=== PATIENT | female | born 1985 ===

== ENCOUNTER 2024-02-11 08:26 | Inpatient (IN) ==
[2024-02-11 09:35] LABS: ABS Lymphocytes 1.3 10^3/uL (1.0-4.8); ABS Monocytes 0.6 10^3/uL (0.0-0.9); ABS Neutrophils 6.4 10^3/uL (1.5-7.6); Hematocrit 38.5 % (35-45); Mean Corpuscular Hemoglobin 30.6 pg (27-33); Mean Corpuscular Hgb Conc 33.8 g/dL (31-36); Mean Corpuscular Volume 90.3 fL (80-97); Mean Platelet Volume 7.1 fL (7.5-11.2); Platelet Count 286 10^3/uL (150-450); Red Blood Count 4.26 10^6/uL (3.63-4.92); Red Cell Distribution Width 13.8 % (12-17); White Blood Count 8.3 10^3/uL (3.8-11.8)
[2024-02-11 09:38] LABS: Urine Appearance Clear; Urine Bilirubin Negative (Negative); Urine Blood Negative (Negative); Urine Color Yellow; Urine Glucose Negative (Negative); Urine Ketones 2+ (Negative); Urine Nitrite Negative (Negative); Urine Protein 2+ (>=100 mg/dL) (Negative); Urine Specific Gravity 1.022 (1.002-1.030); Urine Urobilinogen Negative (Negative); Urine pH 6.5 (5.0-8.0)
[2024-02-11 09:55] LABS: Urine Benzodiazepine Screen None Detected (None Detect); Urine Cannabinoids Screen None Detected (None Detect); Urine Opiates Screen None Detected (None Detect)
[2024-02-11 10:06] LABS: Urine Bacteria 1+ /HPF (Absent); Urine Red Blood Cell Trace(0-2/hpf) /HPF (0-Trace); Urine Squamous Epithelial Cell Present /HPF (Absent); Urine White Blood Cell Trace(0-5/hpf) /HPF (0-Trace)
[2024-02-11 10:10] LABS: TSH Ultra Thyroid Stim Horm 0.85 mcIU/mL (0.34-5.60)
[2024-02-11 10:27] LABS: ALT 13 U/L (7-52); AST 14 U/L (13-39); Acetaminophen < 15 mcg/mL; Albumin/Globulin Ratio 2.2 (1-3); Alcohol, S < 13 mg/dL (<13); Alkaline Phosphatase 43 U/L (35-149); Blood Urea Nitrogen 8 mg/dL (6-24); CO2 Carbon Dioxide 27 mmol/L (22-32); Calcium 10.2 mg/dL (8.6-10.3); Creatinine, Serum 0.98 mg/dL (0.51-0.95); Globulin 2.3 g/dL (2-4); Glucose 108 mg/dL (70-100); Potassium 4.3 mmol/L (3.5-5.0); Salicylate < 2.50 mg/dL (<30); Total Bilirubin 0.7 mg/dL (0.2-1.0); Total Protein 7.3 g/dL (6.4-8.9); eGFR CKD-EPI 74.8 (>60)
[2024-02-11] MEDS ORDERED: OLANZapine 5 mg TAB *ODT PO PRN (13:09)
[2024-02-12] MEDS: OLANZapine IM (NF) 10 MG VIAL IM ONE ×2 (04:57→05:14)
[2024-02-12] MEDS: Sterile Water for Inj 10 ML ONE (04:57)
[2024-02-14 12:25] LABS: Anion Gap 11 mmol/L (2-16); Chloride 105 mmol/L (101-111); Sodium 143 mmol/L (135-145)
[2024-02-14] MEDS: LORazepam 2 MG/ML 1 mL Syringe ONE (23:54)
[2024-02-14] MEDS: Haloperidol 5 mg/ml SDV IV/IM 5 MG/ML AMP ONE (23:54)
[2024-02-15] MEDS: Haloperidol 5 mg/ml SDV IV/IM 5 MG/ML AMP IM ONE (01:34)
[2024-02-15] MEDS: LORazepam 2 MG/ML 1 mL Syringe IM ONE (01:34)
[2024-02-15] MEDS: COENZYME Q10 PO SCH (18:12)
[2024-02-15] MEDS: VITAMIN E 200 UNIT PO SCH (18:14)
[2024-02-21 11:30] VITALS: BP 117/80
[2024-02-21 12:49] LABS: Albumin 4.2 g/dL (3.2-5.2); Albumin/Globulin Ratio 2.3 (1-3); Creatinine, Serum 0.82 mg/dL (0.51-0.95); Globulin 1.8 g/dL (2-4); Potassium 4.1 mmol/L (3.5-5.0); Total Bilirubin 0.4 mg/dL (0.2-1.0); eGFR CKD-EPI 92.7 (>60)
== END 2024-02-21 13:30 | disposition home or self-care (01) | DRG 753 ==
LOC: ED 08:26 → EDHOLD 13:05 → BSU 17:32
PROVIDERS: ADMIT Student in an Organized Health Care Education/Training Program; ATTEND Student in an Organized Health Care Education/Training Program